=== PATIENT | male | born 1930 | race Caucasian/White ===

== ENCOUNTER → 2016-10-17 | Outpatient (CLI) | payer MEDICARE, OTHER ==
--- NOTE | 2016-10-17 15:18 | RADRPT ---
Echocardiogram Report Patient Name: DEISY BARKER Gender: Male Date: 1930 Study Date: 17-Oct-2016 [employer] Superintendent: Remedios Gudino RDCS Location: EKG Ref. Physician: CLARE HICKS Quality: Good Procedures: Transthoracic echocardiogram with complete 2D, M-Mode, and doppler examination. Indications: Congestive Heart Failure. 2D/M Mode Doppler Measurement Value Normal Ranges Measurement Value Normal Ranges LVIDd 2D 3.6 3.5 - 5.6 cm AV Peak [place] 1.7 m/sec LVIDs 2D 2.1 2.1 - 4.1 cm AV Peak PG 11.3 mmHg LVPWd 2D 0.6 0.6 - 1.1 cm AI Peak PG 44.8 mmHg IVSd 2D 0.8 0.6 - 1.1 cm AI Peak [place] 3.3 m/sec AoR Diam 2D 2.6 2.0 - 3.7 cm AI PHT 500.2 msec EDV 2D 55.6 cm3 LVOT Peak [place] 1.0 m/sec ESV 2D 9.1 cm3 LVOT Peak PG 4.3 mmHg LA Dimen 2D 3.1 2.3 - 4.0 cm MV E Peak [place] 0.7 m/sec MV A Peak [place] 1.0 m/sec MV E/A 0.8 MV Decel Time 257 msec MV Decel [place] 3 MV E/A 0.8 Findings Left Ventricle: Normal left ventricular systolic function. Normal left ventricular cavity size. Normal left ventricular wall thickness. Ejection fraction is visually estimated at 6065 %. Tissue Doppler/Mitral Doppler indices are consistent with impaired relaxation (Stage I diastolic dysfunction). Right Ventricle: Normal right ventricular size. Normal right ventricular systolic function. Left Atrium: The left atrium is normal in size. Right Atrium: The right atrium is normal in size. Mitral Valve: Moderate mitral annular calcification. Trace mitral regurgitation. Aortic Valve: No hemodynamically significant aortic stenosis by doppler. Aortic cusps appear mildly calcified. Mild aortic valve regurgitation. Tricuspid Valve: Normal appearance and function of the tricuspid valve with trace physiologic regurgitation. Normal right ventricular systolic pressure. Pericardium: Normal pericardium with no significant pericardial effusion. Aorta: Normal aortic root. IVC: Normal size and normal respiratory collapse consistent with normal right atrial pressure. Conclusions 1.Normal left ventricular systolic function. Normal left ventricular cavity size. Normal left ventricular wall thickness. Ejection fraction is visually estimated at 60-65 %. Tissue Doppler/Mitral Doppler indices are consistent with impaired relaxation (Stage I diastolic dysfunction). 2.Moderate mitral annular calcification. Trace mitral regurgitation. 3.No hemodynamically significant aortic stenosis by doppler. Aortic cusps appear mildly calcified. Mild aortic valve regurgitation. 4.Normal appearance and function of the tricuspid valve with trace physiologic regurgitation. Normal right ventricular systolic pressure. Electronically Signed By: Clare Hicks 17-Oct-2016 15:18:14 -0800 Patient Name: DEISY BARKER Study Date: 17-Oct-2016 [id number]
== END | disposition home or self-care (01) ==
LOC: EKG 10:41
PROVIDERS: ATTEND Internal Medicine
DX: I50.9 Heart failure, unspecified (principal)
CPT/HCPCS: 93306

== ENCOUNTER → 2017-01-18 | Outpatient (CLI) | payer MEDICARE, OTHER ==
--- NOTE | 2017-01-18 18:13 | RADRPT ---
Echocardiogram Report Patient Name: DEISY BARKER Gender: Male Date: 1930 Study Date: 18-Jan-2017 Claims Director: ARACELI CACERES Location: EKG Ref. Physician: YASSINE STARK Quality: Adequate Procedures: Transthoracic echocardiogram with complete 2D, M-Mode, and doppler examination. Indications: Congestive Heart Failure. 2D/M Mode Doppler Measurement Value Normal Ranges Measurement Value Normal Ranges LVIDd 2D 3.0 3.5 - 5.6 cm ROBERT Vmax 1.5 cm2 LVIDs 2D 1.9 2.1 - 4.1 cm AV Peak [place] 1.9 m/sec FS 2D 37.3 % AV Peak PG 14.0 mmHg LVPWd 2D 1.1 0.6 - 1.1 cm AI Peak PG 29.0 mmHg IVSd 2D 1.0 0.6 - 1.1 cm AI Peak [place] 2.7 m/sec IVS/LVPW 2D 1.0 AI PHT 1915.0 msec AoR Diam 2D 2.9 2.0 - 3.7 cm LVOT Peak [place] 1.4 m/sec LA/Ao 2D 1 0 - 1 LVOT Peak PG 8.0 mmHg EDV 2D 27.0 cm3 MV E Peak [place] 0.5 m/sec ESV 2D 6.6 cm3 MV A Peak [place] 1.1 m/sec LA Dimen 2D 4.0 2.3 - 4.0 cm MV E/A 0.5 LVOT Diam 1.6 cm MV Decel Time 324 msec LVOT Area 2.0 cm2 MV E/A 0.5 TR Peak [place] 2.8 m/sec TR Peak PG 31.0 mmHg RVSP 34.0 mmHg Findings Left Ventricle: Normal left ventricular systolic function. Normal left ventricular cavity size. Mild concentric left ventricular hypertrophy. Ejection fraction is visually estimated at 65 %. Tissue Doppler/Mitral Doppler indices are consistent with impaired relaxation (Stage I diastolic dysfunction). Right Ventricle: Normal right ventricular size. Normal right ventricular systolic function. Left Atrium: The left atrium is normal in size. Right Atrium: The right atrium is normal in size. Mitral Valve: Mild mitral leaflet calcification. Mild mitral annular calcification. Mild mitral valve regurgitation. Aortic Valve: Mild aortic stenosis. Aortic cusps appear mildly calcified. Mild to moderate aortic valve regurgitation. Tricuspid Valve: Normal appearance of the tricuspid valve. Estimated peak PA systolic pressure 41 mmHg. There is mild tricuspid regurgitation. Pulmonic Valve: Pulmonic valve not well visualized. Pericardium: Normal pericardium with no significant pericardial effusion. Aorta: Ascending Aorta 3.8 cm. There is mild aortic root dilation. IVC: Normal size and normal respiratory collapse consistent with normal right atrial pressure. Conclusions 1.Normal left ventricular systolic function. Normal left ventricular cavity size. Mild concentric left ventricular hypertrophy. Ejection fraction is visually estimated at 65 %. Tissue Doppler/Mitral Doppler indices are consistent with impaired relaxation (Stage I diastolic dysfunction). 2.Mild mitral leaflet calcification. Mild mitral annular calcification. Mild mitral valve regurgitation. 3.Mild aortic stenosis. Aortic cusps appear mildly calcified. Mild to moderate aortic valve regurgitation. 4.Normal appearance of the tricuspid valve. Estimated peak PA systolic pressure 41 mmHg. There is mild tricuspid regurgitation. Electronically Signed By: Antonio Rodriguez 18-Jan-2017 18:13:35 -0700 Patient Name: DEISY BARKER Study Date: 18-Jan-2017 [id number]
== END | disposition home or self-care (01) ==
LOC: EKG 13:22
PROVIDERS: ATTEND Family Medicine
DX: I50.9 Heart failure, unspecified (principal)
CPT/HCPCS: 93306

== ENCOUNTER → 2017-12-23 | Outpatient (CLI) | END | disposition home or self-care (01) ==

== ENCOUNTER → 2018-07-29 | Outpatient (CLI) | END | disposition home or self-care (01) ==

== ENCOUNTER → 2018-12-30 | Outpatient (CLI) | payer MEDICARE, OTHER ==
--- NOTE | 2018-12-30 14:55 | RADRPT ---
Echocardiogram Report Patient Name: Fabiano BARKER ID: [id number] : 1930 (88y 6m)Study Date: 12/30/2018 1:13:32 PM Gender: FAccession #: [id number] Tech: Remedios Gudino RDCS Location: EKG Ref.Physician: CLARE HICKS Height(Cm): BSA: Weight(Kg): Quality: AdequateAccount #: Procedures: Echocardiographic Report: Transthoracic echocardiogram with complete 2D, M-Mode, and doppler examination. Indications: Bradycardia, and Hypertension. Measurements: 2D/M Mode Doppler Measurement Value Normal Range Measurement Value Normal Range LVIDd 2D 3.3 [ 3.8 - 5.2 ] cm AV Peak [place] 1.6 [ 100.0 - 170.0 ] cm/sec LVIDs 2D 1.9 [ 2.2 - 3.5 ] cm AV Peak PG 10.0 [ 2.0 - 9.0 ] mmHg LVPWd 2D 1.1 [ 0.6 - 0.9 ] cm LVOT Peak [place] 1.0 [ 70.0 - 110.0 ] cm/sec IVSd 2D 1.1 [ 0.6 - 0.9 ] cm LVOT Peak PG 4.0 [ 2.0 - 6.0 ] mmHg IVS/LVPW 2D 1.1 ratio MV E Peak [place] 0.4 [ 60.0 - 130.0 ] cm/sec AoR Diam 2D 2.7 [ 2.3 - 3.1 ] cm MV A Peak [place] 1.0 [ 100.0 - 120.0 ] cm/sec LA/Ao 2D 1 ratio MV E/A 0.5 [ 0.8 - 1.5 ] ratio LA Dimen 2D 2.9 [ 2.7 - 3.8 ] cm MV Decel Time 165 [ 104 - 258 ] msec Lat E` [place] 0.1 [ 10.0 - 15.0 ] cm/sec MV E/A 0.5 [ 0.8 - 1.5 ] ratio TR Peak [place] 1.8 [ 100.0 - 280.0 ] cm/sec TR Peak PG 12.0 mmHg RVSP 15.0 [ 10.0 - 36.0 ] mmHg RA Pressure 3.0 mmHg Findings: Left Ventricle: Normal left ventricular systolic function. Normal left ventricular cavity size. Mild concentric left ventricular hypertrophy. Ejection fraction is visually estimated at 45-50 %. Tissue Doppler/Mitral Doppler indices are consistent with impaired relaxation (Stage I diastolic dysfunction). These segments of the LV are hypokinetic apex and apical septum. Right Ventricle: Normal right ventricular size. Normal right ventricular systolic function. Left Atrium: The left atrium is normal in size. Right Atrium: The right atrium is normal in size. Mitral Valve: Mitral valve leaflets appear mildly thickened. Mild mitral annular calcification. Trace mitral regurgitation. Aortic Valve: No hemodynamically significant aortic stenosis by doppler. Aortic cusps appear mildly calcified. Mild to moderate aortic valve regurgitation. Tricuspid Valve: Normal appearance of the tricuspid valve. Estimated peak PA systolic pressure 15 mmHg. There is trace tricuspid regurgitation. Pulmonic Valve: Normal pulmonic valve appearance. Pericardium: Normal pericardium with no significant pericardial effusion. Aorta: Normal aortic root. IVC: Normal size and normal respiratory collapse consistent with normal right atrial pressure. Conclusions: Normal left ventricular systolic function. Normal left ventricular cavity size. Mild concentric left ventricular hypertrophy. Ejection fraction is visually estimated at 45-50 %. Tissue Doppler/Mitral Doppler indices are consistent with impaired relaxation (Stage I diastolic dysfunction). These segments of the LV are hypokinetic apex and apical septum. Mitral valve leaflets appear mildly thickened. Mild mitral annular calcification. Trace mitral regurgitation. No hemodynamically significant aortic stenosis by doppler. Aortic cusps appear mildly calcified. Mild to moderate aortic valve regurgitation. Electronically Signed By: Clare Hicks 2018-12-30 14:54:34 PDT
== END | disposition home or self-care (01) ==
LOC: EKG 12:47
PROVIDERS: ATTEND Internal Medicine
DX: R00.1 Bradycardia, unspecified (principal); I10 Essential (primary) hypertension
CPT/HCPCS: 93306

== ENCOUNTER → 2019-04-02 | Outpatient (CLI) | payer MEDICARE, OTHER ==
--- NOTE | 2019-04-02 20:16 | RADRPT ---
Echocardiogram Report Patient Name: Fabiano BARKER ID: [id number] : 1930 (88y 9m)Study Date: 04/02/2019 10:17:28 AM Gender: FAccession #: [id number] Tech: Catrachito Rodriguez [facility] Location: EKG Ref.Physician: CLARE HICKS Height(Cm): BSA: Weight(Kg): Quality: AdequateOrder Physician: CLARE HICKS Account #: Procedures: Echocardiographic Report: Transthoracic echocardiogram with complete 2D, M-Mode, and doppler examination. Indications: Evaluate Left Ventricular function. Measurements: 2D/M Mode Doppler Measurement Value Normal Range Measurement Value Normal Range LVIDd 2D 4.0 [ 3.8 - 5.2 ] cm ROBERT VTI 2.2 [ 2.0 - 4.0 ] cm2 LVIDs 2D 2.9 [ 2.2 - 3.5 ] cm AV Mean [place] 1.0 [ 70.0 - 90.0 ] cm/sec LVPWd 2D 1.1 [ 0.6 - 0.9 ] cm AV Mean PG 5.0 [ 2.0 - 4.0 ] mmHg IVSd 2D 1.1 [ 0.6 - 0.9 ] cm AV VTI 30.5 cm AoR Diam 2D 2.2 [ 2.3 - 3.1 ] cm LVOT Mean [place] 0.7 [ 60.0 - 80.0 ] cm/sec EDV 2D 71.3 [ 46.0 - 106.0 ] ml LVOT Mean PG 2.0 [ 1.0 - 3.0 ] mmHg ESV 2D 31.9 [ 14.0 - 42.0 ] ml LVOT Peak [place] 1.0 [ 70.0 - 110.0 ] cm/sec EF 2D 55.3 [ 54.0 - 74.0 ] percent LVOT Peak PG 4.0 [ 2.0 - 6.0 ] mmHg LA Dimen 2D 4.0 [ 2.7 - 3.8 ] cm LVOT VTI 21.0 [ 20.0 - 30.0 ] cm LVOT Diam 2.0 [ 2.1 - 2.5 ] cm MV E Peak [place] 0.6 [ 60.0 - 130.0 ] cm/sec MV A Peak [place] 0.9 [ 100.0 - 120.0 ] cm/sec MV E/A 0.6 [ 0.8 - 1.5 ] ratio MV Decel Time 257 [ 104 - 258 ] msec Lat E` [place] 0.1 [ 10.0 - 15.0 ] cm/sec Lateral E/E` 9.1 [ 1.0 - 2.0 ] ratio Med E` [place] 0.0 cm/sec MV E/A 0.6 [ 0.8 - 1.5 ] ratio RA Pressure 8.0 mmHg Findings: Left Ventricle: Normal left ventricular systolic function. Normal left ventricular cavity size. Left ventricular wall thickness upper limits of normal. Ejection fraction is visually estimated at 55 %. Tissue Doppler/Mitral Doppler indices are consistent with impaired relaxation (Stage I diastolic dysfunction). Right Ventricle: Normal right ventricular size. Normal right ventricular systolic function. Left Atrium: The left atrium is normal in size. Right Atrium: The right atrium is normal in size. Mitral Valve: Mild mitral leaflet calcification. Mild mitral annular calcification. Trace mitral regurgitation. Aortic Valve: Aortic sclerosis without significant stenosis. Trace aortic valve regurgitation. Tricuspid Valve: Normal appearance of the tricuspid valve. Unable to obtain RVSP due to minimal presence of tricuspid regurgitation. Pericardium: Normal pericardium with no significant pericardial effusion. Aorta: Normal aortic root. IVC: Normal size and no respiratory collapse consistent with elevated right atrial pressure. Conclusions: Normal left ventricular systolic function. Normal left ventricular cavity size. Left ventricular wall thickness upper limits of normal. Ejection fraction is visually estimated at 55 %. Tissue Doppler/Mitral Doppler indices are consistent with impaired relaxation (Stage I diastolic dysfunction). Normal right ventricular size. Normal right ventricular systolic function. Mild mitral leaflet calcification. Mild mitral annular calcification. Trace mitral regurgitation. Aortic sclerosis without significant stenosis. Trace aortic valve regurgitation. Normal appearance of the tricuspid valve. Unable to obtain RVSP due to minimal presence of tricuspid regurgitation. Electronically Signed By: Clare Hicks 2019-04-02 20:14:40 PDT
== END | disposition home or self-care (01) ==
LOC: EKG 09:53
PROVIDERS: ATTEND Internal Medicine
DX: I10 Essential (primary) hypertension (principal)
CPT/HCPCS: 93306